=== PATIENT | female | born 1960 | race Caucasian/White ===

== ENCOUNTER → 2018-12-23 | Day surgery (SDC) | payer OTHER ==
--- NOTE | 2018-12-24 14:34 | PATH ---
Surgical Pathology Report Patient Name: ALONZO BLACKWOOD [facility]. Rec. #: [id number] /Age/Gender: 1960 (Age: 58) / F Account: [id number] Location: [facility] Taken: 12/23/2018 Received: 12/23/2018 Reported: 12/24/2018 Physicians: Toni Woodward M.D. Specimen(s) Received A: RIGHT BREAST SPECIMEN SITE 1 - WITH CALCIFICATIONS B: RIGHT BREAST SPECIMEN - SITE 1 - WITHOUT CALCIFICATIONS C: RIGHT BREAST SPECIMEN - SITE 2 - WITH CALCIFICATIONS D: RIGHT BREAST SPECIMEN -SITE 2 - WITHOUT CALCIFICATIONS Clinical History Nonpalpable lesion Mammographic findings: Microcalcification, suspicious 2 sites: Site #1-right retroareolar calcifications Site #2-lower outer quadrant calcifications Final Diagnosis A. RIGHT BREAST, SITE 1 RETROAREOLAR WITH CALCIFICATION, STEREOTACTIC NEEDLE CORE BIOPSY: BENIGN BREAST TISSUE WITH FIBROCYSTIC CHANGES INCLUDING FOCAL USUAL DUCTAL HYPERPLASIA, COLUMNAR CELL CHANGE, STROMAL FIBROSIS, DUCTAL DILATATION, AND ASSOCIATED CALCIFICATION. B. RIGHT BREAST, SITE 1 RETROAREOLAR WITHOUT CALCIFICATION, STEREOTACTIC NEEDLE CORE BIOPSY: BENIGN BREAST TISSUE WITH FIBROCYSTIC CHANGES INCLUDING USUAL DUCTAL HYPERPLASIA, STROMAL FIBROSIS, AND DUCTAL DILATATION. C. RIGHT BREAST, SITE 2 LOWER OUTER QUADRANT WITH CALCIFICATION, STEREOTACTIC NEEDLE CORE BIOPSY: LOBULAR CARCINOMA IN-SITU (LCIS), CLASSICAL TYPE. E-CADHERIN STAIN SHOWS LOSS OF STAINING CONSISTENT WITH LOBULAR PHENOTYPE. REMAINING BREAST TISSUE WITH FIBROCYSTIC CHANGES INCLUDING USUAL DUCTAL HYPERPLASIA, STROMAL FIBROSIS, DUCTAL DILATATION, CYSTIC APOCRINE METAPLASIA, AND ASSOCIATED CALCIFICATION. D. RIGHT BREAST, SITE 2 LOWER OUTER QUADRANT WITHOUT CALCIFICATION, STEREOTACTIC NEEDLE CORE BIOPSY: LOBULAR CARCINOMA IN-SITU (LCIS), CLASSICAL TYPE. E-CADHERIN STAIN SHOWS LOSS OF STAINING CONSISTENT WITH LOBULAR PHENOTYPE. REMAINING BREAST TISSUE WITH FIBROCYSTIC CHANGES INCLUDING USUAL DUCTAL HYPERPLASIA, STROMAL FIBROSIS, DUCTAL DILATATION, AND CYSTIC APOCRINE METAPLASIA. Electronically Signed Denver Dawson M.D. Gross Description A. Received in formalin labeled "right breast with calcifications site 1 retroareolar," are 8 cueto-yellow, cylindrical portions of fibroadipose tissue ranging from 0.5-2.7 cm in length and averaging 0.3 cm in diameter. The specimens are submitted in toto in 2 cassettes. B. Received in formalin labeled "right breast without calcifications site 1 retroareolar," is a 2.2 x 2.0 x 0.2 cm aggregate of multiple cueto-yellow, irregular to cylindrical portions of fibroadipose tissue. The formalin is filtered and the specimen is entirely submitted in one cassette. C. Received in formalin labeled "right breast with calcifications site 2 lower outer," is a 2.5 x 2.1 x 0.3 cm aggregate of multiple cueto-yellow, irregular to cylindrical portions of fibroadipose tissue. The formalin is filtered and the specimen is entirely submitted in one cassette. D. Received in formalin labeled "right breast without calcifications site 2 lower outer," is a 1.6 x 1.3 x 0.3 cm aggregate of multiple cueto-yellow, irregular to cylindrical portions of fibroadipose tissue. The formalin is filtered and the specimen is entirely submitted in one cassette. Time to formalin fixation: 5 minutes Total formalin fixation time: Approximately 8 hours. 12/23/2018 [facility]12/23/2018
== END | disposition home or self-care (01) ==
LOC: FMAMMOTONE 08:30
PROVIDERS: ATTEND Surgery Surgical Oncology
PROC: 0HBT3ZX Excision of Right Breast, Percutaneous Approach, Diagnostic (ICD-10-PCS; principal; 2018-12-23)
DX: D05.01 Lobular carcinoma in situ of right breast (principal); N60.81 Other benign mammary dysplasias of right breast; N60.31 Fibrosclerosis of right breast; N64.89 Other specified disorders of breast; R92.1 Mammographic calcification found on diagnostic imaging of breast
CPT/HCPCS: 19081; 19082; 87899; 88305-TC; 88342-TC; A4648

== ENCOUNTER 2019-01-05 09:57 | Day surgery (SDC) | payer OTHER ==
[2018-12-29 14:35] VITALS: BMI 24.8
--- NOTE | 2019-01-04 09:09 | HP ---
Admitting History and Physical - Primary Care Physician PCP: Toni Woodward - Admission Chief Complaint: Right breast LCIS History of Present Illness: Patient is a 58 yo female noted to have right breast calcifications on screening mammo 11/2018 in the retroareolar and lower outer quad. Patient underwent a stereo bx on 12/23/2018 which was c/w LCIS in the lower outer quad and benign tissue in the retroareolar aspect. Patient is now presenting for Right breast WE with NL. History Source: Patient Limitations to Obtaining History: No Limitations - Past Medical History Cardiovascular: Yes: Hyperlipdemia ...: No - Smoking History Smoking history: Never smoked Have you smoked in the past 12 months: No - Alcohol/Substance Use Hx Alcohol Use: Yes (SOCIALLY) Home Medications - Allergies Allergies/Adverse Reactions: Allergies Allergy/AdvReac Type Severity Reaction Status Date / Time No Known Drug Allergies Allergy Verified 12/29/18 14:18 - Home Medications Home Medications: Ambulatory Orders Ascorbic Acid [Vitamin C] 500 mg PO DAILY 12/29/18 Biotin 10,000 mcg PO DAILY 12/29/18 Cholecalciferol (Vitamin D3) [Vitamin D3] 2,000 unit PO DAILY 12/29/18 Cyanocobalamin Vit B-12 Inj. [Redisol] 1,000 mcg IJ MONTHLY 12/29/18 Multivitamins [Tab-A-Vit -] 1 tab PO DAILY 12/29/18 Rosuvastatin Calcium [Crestor] 5 mg PO ASDIR 12/29/18 Ubidecarenone/Vit E Acet [Co Q-10 100 mg Softgel] 1 each PO DAILY 12/29/18 Family Disease History - Family Disease History Family Disease History: CA: Brother (pancreatic cancer) Review of Systems - Review of Systems Constitutional: reports: No Symptoms Cardiovascular: reports: No Symptoms Respiratory: reports: No Symptoms Physical Examination Constitutional: Yes: Well Nourished Breast(s): Yes: Other (Ptotic full B-cup breasts without skin changes or nipple discharge. No suspicious masses or adenopathy was noted bilaterally.) Problem List - Problems (1) Lobular carcinoma of right breast Code(s): C50.911 - MALIGNANT NEOPLASM OF UNSP SITE OF RIGHT FEMALE BREAST Assessment/Plan Plan: Right breast WE with NL
--- NOTE | 2019-01-04 09:19 | HP ---
History & Physical Update - History Currently as noted:: past surgical hx: and lap CCY
[2019-01-05] MEDS ORDERED: fentaNYL CITRATE 250 MCG/5 ML VIAL ONE (12:33)
[2019-01-05] MEDS ORDERED: ONDANSETRON 4 MG/2 ML VIAL ONE ×2 (12:33→14:14)
[2019-01-05] MEDS ORDERED: DEXAMETHASONE SOD PHOSPHATE 4 MG/1 ML VIAL ONE (12:33)
[2019-01-05] MEDS ORDERED: PROPOFOL 20 ML ONE (12:34)
[2019-01-05] MEDS ORDERED: ceFAZolin SODIUM 1 GM VIAL ONE (12:34)
[2019-01-05] MEDS ORDERED: MIDAZOLAM HCL 2 MG/2 ML SINGLE DOSE VIAL ONE (12:34)
[2019-01-05] MEDS ORDERED: BUPIVACAINE HCL/PF 2.5 MG/ML - 30 ML VIAL IJ ONE (13:50)
[2019-01-05] MEDS ORDERED: DESFLURANE GAS 240 ML BOTTLE IH ONE (14:37)
[2019-01-05] MEDS ORDERED: GUM MASTIC/STORAX/MSAL/ALCOHOL 1 DRP DROPSBTL MC ONE (14:53)
[2019-01-05] MEDS ORDERED: ONDANSETRON 4 MG/2 ML VIAL IVPUSH PRN (15:07)
[2019-01-05] MEDS ORDERED: DEXTROSE 5%-0.45% SALINE 1,000 ML IV SCH (15:15)
[2019-01-05] MEDS ORDERED: oxyCODONE HCL 5 MG TABLET PO PRN (15:57)
[2019-01-05] MEDS ORDERED: LACTATED RINGERS SOLUTION 1,000 ML IV SCH (16:00)
[2019-01-05 16:06] VITALS: TEMP 97.9
[2019-01-05] MEDS ORDERED: oxyCODONE HCL 5 MG TABLET ONE (16:06)
[2019-01-05 17:13] VITALS: BP 120/66; PULSE 74
--- NOTE | 2019-01-05 20:22 | OP ---
DATE OF OPERATION: 01/05/2019 PREOPERATIVE DIAGNOSIS: Right breast lobular cancer in situ. POSTOPERATIVE DIAGNOSIS: Right breast lobular cancer in situ. PROCEDURE: Right breast wide excision with mammographic needle localization. ANESTHESIA: General laryngeal mask airway anesthesia. PRIMARY SURGEON: Gerald Woodward MD MANAGER RELIABILITY: YOJANA Brown COMPLICATIONS: None. Briefly, the patient is a 58-year-old postmenopausal white female of [place] and [place] descent. She has no family history of breast or ovarian cancer. She was noticed to have some increased calcifications in the right breast retroareolar and lower outer quadrant of the right breast. She underwent stereotactic biopsies, which showed the retroareolar biopsy to be benign, but the lower outer quadrant biopsy showed LCIS. There were some other calcifications, which were reviewed by our radiologist preoperatively, and they were felt to be insignificant. The patient was advised of undergoing a wide excision of this right breast lower outer quadrant area of LCIS. She was brought in for the procedure on January 05, 2019, and underwent the mammographic needle localization of the clip. She was then brought to the holding area. In the holding area, site verification was made and informed consent was obtained. She was brought into the operating room and laid down on the OR table in a supine position. Venodynes were placed on the lower extremities and she received general laryngeal mask airway anesthesia. The right breast was sterilely prepped and draped in the usual fashion. A periareolar incision was made around the lateral aspect of the right breast nipple/areolar complex and dissection was undertaken around the needle localization site. There was a fairly good-sized hematoma around the biopsy site and this had to be entered in order to remove the entire specimen. The specimen was removed with the wire intact within the middle of the specimen and oriented with a long lateral, short superior suture. Specimen radiograph did not show the clip in question. There was noted to be some further posterior wall to the biopsy cavity in the wide excision site and the posterior aspect was removed as well as residual hematoma and this was oriented with a suture marking the biopsy cavity side; however, this as well, did not show the clip on specimen radiograph. Another anterior section was taken, again, not showing the clip. At this point, the entire biopsy cavity had been removed with all the hematoma. There was another hematoma in the retroareolar region, which was also evacuated in order to offer the patient some pain relief. Hemostasis was achieved using electrocautery. The wound was copiously irrigated with warm sterile saline. The breast parenchyma was then reapproximated using 2-0 plain suture. The skin was closed using interrupted 3-0 deep dermal Vicryl suture and a running 4-0 subcuticular Biosyn suture. Dermabond, Mastisol, Steri-Strips were applied over the incision. She was awake and alert at the end of the procedure. The laryngeal mask airway tube was removed. When she was awake and alert, I spoke to her about the fact that we did not see the clip on the specimen radiograph. It is likely that the clip did fall out with the hematoma. We did remove the entire gross biopsy site in the lower outer quadrant, however, and will await the pathology. We will get a followup mammography in a month just to confirm clip removal. All sponge and needle counts were correct at the end of the case. ESTIMATED BLOOD LOSS: Minimal. She will follow up in the office in 1 week. GERALD WOODWARD M.D. [id number]
--- NOTE | 2019-01-08 16:56 | PATH ---
Surgical Pathology Report Patient Name: ALONZO BLACKWOOD [facility]. Rec. #: [id number] /Age/Gender: 1960 (Age: 58) / F Account: [id number] Location: [facility] Taken: 01/05/2019 Received: 01/05/2019 Reported: 01/08/2019 Physicians: Toni Woodward M.D. Specimen(s) Received A: RIGHT BREAST WIDE EXCISION B: POSTERIOR MARGIN RIGHT BREAST C: ANTERIOR MARGIN BREAST RIGHT Clinical History Wide excision for LCIS Final Diagnosis A. RIGHT BREAST, WIDE EXCISION: INVASIVE LOBULAR CARCINOMA, CLASSICAL TYPE, MODERATELY DIFFERENTIATED (TUBULE SCORE 3/3, NUCLEAR GRADE: 2/3, MITOTIC SCORE: 1/3, TOTAL SCORE 6/9, OMAR GRADE 2), MEASURING 0.8 CM IN GREATEST DIMENSION, MICROSCOPICALLY. LOBULAR CARCINOMA IN SITU (LCIS) PRESENT, CLASSICAL TYPE. SURGICAL MARGINS ARE UNINVOLVED BY INVASIVE LOBULAR CARCINOMA. INVASIVE CARCINOMA IS AT 1 MM FROM THE CLOSEST (POSTERIOR) MARGIN. ALSO SEE SPECIMENS B AND C FOR FINAL MARGINS. REMAINDER OF THE BREAST TISSUE SHOW INTRADUCTAL PAPILLOMA AND PROLIFERATIVE FIBROCYSTIC CHANGES WITH ASSOCIATED MICROCALCIFICATIONS. NO LYMPHOVASCULAR INVASION IS IDENTIFIED. PRIOR BIOPSY SITE WITH REACTIVE CHANGES. PATHOLOGIC STAGE (pTNM): pT1b, pN0 SEE ALSO INVASIVE CARCINOMA CASE SUMMARY BELOW. Comment: Immunohistochemical stains (block A1) performed and interpreted at [facility] show the following results: the invasive carcinoma is highlighted with AE1/AE3, and shows loss of membranous staining for E-Cadherin. B. POSTERIOR MARGIN RIGHT BREAST, EXCISION: LOBULAR CARCINOMA IN SITU (LCIS), CLASSICAL TYPE. INTRADUCTAL PAPILLOMA INVOLVED WITH LCIS. PRIOR BIOPSY SITE SHOWING REACTIVE CHANGES WITH MARKED HEMORRHAGE. C. ANTERIOR MARGIN RIGHT BREAST, EXCISION: LOBULAR CARCINOMA IN SITU (LCIS), CLASSICAL TYPE. PRIOR BIOPSY SITE SHOWING REACTIVE CHANGES WITH MARKED HEMORRHAGE. Comments Breast Invasive Carcinoma: Surgical Pathology Case Summary (Based on AJCC TNM 8 th edition) Procedure _x_ Excision (less than total mastectomy) Specimen Laterality _x_ Right Tumor Size Greatest dimension of largest invasive focus >1 mm (millimeters): 8 mm Histologic Type _x_ Invasive lobular carcinoma, classical type Histologic Grade (Lavon Histologic Score) Glandular (Acinar)/Tubular Differentiation _x_ Score 3 (<10% of tumor area forming glandular/tubular structures) Nuclear Pleomorphism _x_ Score 2 Mitotic Rate _x_ Score 1 Overall Grade _x_ Grade 2 (scores of 6 or 7) Tumor Focality _x_ Single focus of invasive carcinoma Ductal Carcinoma In Situ (DCIS) _x_ No DCIS in specimen Margins Invasive Carcinoma Margins _x_ Uninvolved by invasive carcinoma Distance from closest margin (millimeters): >1 mm Closest margin: Posterior margin. The distance from invasive carcinoma to posterior margin measures 1 mm in the wide excision (specimen A). Additional final posterior margin (specimen B) is negative for invasive carcinoma. DCIS Margins _x_ No DCIS in specimen Regional Lymph Nodes _x_ No lymph nodes submitted or found Treatment Effect _x_ No known presurgical therapy Lymphovascular Invasion _x_ Not identified Pathologic Stage Classification (pTNM, AJCC 8th Edition) Primary Tumor (Invasive Carcinoma) (pT) _x_ pT1b: Tumor >5 mm but =10 mm in greatest dimension Category (pN) _x_ pNX: Regional lymph nodes cannot be assessed (eg, not removed for pathological study or previously removed) Biomarker Studies Results of ER and WI studies performed on this specimen (block# A1) at [facility] are as follows: ER (clone [id number] mouse monoclonal antibody by [employer]): >95 % nuclear staining with strong intensity (positive). WI (clone16 mouse monoclonal antibody by [employer]): >90% nuclear staining with moderate to strong intensity (positive). Results of Her2 and Ki67 studies will be reported separately in an addendum. Positive and negative controls (internal if applicable) show appropriate results. Formalin fixation time is within current ASCO/CAP recommendations for ER, WI and Her2 testing. Electronically Signed Filiberto Guzman M.D. Addendum Reported: 01/11/2019 Addendum Diagnosis Results of Her2 (IHC) & Ki-67 studies performed on block "A1" at [place], [place] ([id number]) are as follows: Her2 IHC (EP3 from [employer], formerly known as [id number], using [employer] Polymer Refine detection kit): 0 (Negative). Ki-67: ~10% (Low proliferative index). Positive and negative controls (internal if applicable) show appropriate results. Bertha Laureana Teto-Marcos M.D. Gross Description A. Received in formalin, labeled "right breast wide excision," is a 4.4 x 3.1 x 2.0 cm. cueto-yellow, irregular, portion of fibroadipose tissue with a needle localization wire present. There is a short suture marking the superior aspect and a long suture marking the lateral aspect, per the surgeon. There is no skin or nipple present. The specimen is inked as follows: superior and lateral blue; inferior green; medial yellow; anterior red; deep black. The specimen is serially sectioned from superior to inferior. Sectioning reveals a 0.4 x 0.4 x 0.4 cm indurated focus of fibrous tissue, focally abutting the deep margin. The focus is 0.6 cm from the medial and anterior margins. [place] sections are submitted in 7 cassettes as follows: 1-full face section of mass with anterior, deep, medial and lateral margins; 2-additional fibrous tissue surrounding mass with anterior, deep, medial and lateral margins; 7-8-hiwcdvwjss fibrous tissue surrounding mass (each with medial, anterior and deep margins); 6-superior margin; 7-inferior margin. Total formalin fixation time: Approximately 27 hours B. Received in formalin labeled "posterior margin right breast" is a 3.2 x 2.7 x 1.3 cm portion of fibroadipose tissue with a suture marking the biopsy cavity side, per the surgeon. The new margin is inked blue and the specimen is serially sectioned. The specimen is entirely and sequentially submitted in 7 cassettes. C. Received in formalin labeled "anterior margin right breast," are 3 cueto-yellow, unoriented portions of fibroadipose tissue ranging from 1.4 x 0.6 x 0.3 cm to 2.3 x 1.5 x 0.4 cm. The presumed biopsy cavity side of each specimen is inked blue and the presumed new margin is inked red. The specimens are serially sectioned. The specimens are entirely submitted in 6 cassettes as follows: 1-smallest portion of tissue; 2-3-medium portion of tissue; 4-6-largest portion of tissue. 01/06/2019 saudi01/06/2019
== END 2019-01-05 17:00 | disposition home or self-care (01) ==
LOC: FASU 09:57
PROVIDERS: ATTEND Surgery Surgical Oncology
PROC: 0HBT0ZZ Excision of Right Breast, Open Approach (ICD-10-PCS; principal; 2019-01-05 13:57)
DX: D05.01 Lobular carcinoma in situ of right breast (principal)
CPT/HCPCS: 19281; 88307-TC; 88341-TC; 88342-TC; 94760

== ENCOUNTER 2019-01-14 09:19 | Day surgery (SDC) | payer OTHER ==
--- NOTE | 2019-01-13 09:02 | HP ---
Admitting History and Physical - Primary Care Physician PCP: Toni Woodward - Admission Chief Complaint: Right breast cancer History of Present Illness: 58 year old postmenapausal female who S/P right breast wide excision for LCIS 01/08/2019. Final pathology showed invasive lobular carcinoma clear margins with classical LCIS .8 cm . Patient is here for right sentenel node biopsy. History Source: Patient Limitations to Obtaining History: No Limitations - Past Medical History Cardiovascular: Yes: Hyperlipdemia - Past Surgical History Past Surgical History: Yes: Cholecystectomy (LAP 2012), (1988) Additional Past Surgical History: gastric sleeve 04/2018 and lost 90 pounds - Smoking History Smoking history: Never smoked Have you smoked in the past 12 months: No - Alcohol/Substance Use Hx Alcohol Use: Yes (SOCIALLY) <Kianna Faulkner - Last Filed: 01/15/19 09:40> Home Medications <Kianna Faulkner - Last Filed: 01/15/19 09:40> <Toni Woodward - Last Filed: 02/02/19 16:50> - Allergies Allergies/Adverse Reactions: Allergies Allergy/AdvReac Type Severity Reaction Status Date / Time No Known Drug Allergies Allergy Verified 12/29/18 14:18 NSAIDS (Non-Steroidal AdvReac PT HAD A Verified 01/13/19 14:21 Anti-Inflamma GASTRIC SLEEVE AND CANNOT TAKE NSAIDS - Home Medications Home Medications: Ambulatory Orders Ascorbic Acid [Vitamin C] 500 mg PO DAILY 12/29/18 Biotin 10,000 mcg PO DAILY 12/29/18 Cholecalciferol (Vitamin D3) [Vitamin D3] 2,000 unit PO DAILY 12/29/18 Cyanocobalamin Vit B-12 Inj. [Vitamin B12 Injection -] 1,000 mcg IJ MONTHLY 11/17 Multivitamins [Multivit ([facility] Formul[facility])] 1 tab PO DAILY 12/29/18 Rosuvastatin Calcium [Crestor] 5 mg PO ASDIR 12/29/18 Oxycodone HCl/Acetaminophen [Percocet 5-325 mg Tablet -] 1 - 2 tab PO Q6H #20 tablet MDD 5 01/14/19 Family Disease History - Family Disease History Family Disease History: CA: Brother (pancreatic ) <Kianna Faulkner - Last Filed: 01/15/19 09:40> Physical Examination Constitutional: Yes: Well Nourished, No Distress Breast(s): Yes: Other (Right breast healing well incision intact with steristrips resoving hematoma) <Kianna Faulkner - Last Filed: 01/15/19 09:40> Vital Signs: Vital Signs Temperature 98.2 F 01/14/19 13:31 Pulse Rate 74 01/14/19 13:31 Respiratory Rate 18 01/14/19 13:31 Blood Pressure 112/64 01/14/19 13:31 O2 Sat by Pulse Oximetry (%) 96 01/14/19 13:14 <Toni Woodward - Last Filed: 02/02/19 16:50> Problem List - Problems (1) Lobular carcinoma of right breast Code(s): C50.911 - MALIGNANT NEOPLASM OF UNSP SITE OF RIGHT FEMALE BREAST <Kianna Faulkner - Last Filed: 01/15/19 09:40> Assessment/Plan Right sentenel node biopsy,lymphoscintogram <Kianna Faulkner - Last Filed: 01/15/19 09:40>
[2019-01-13 14:20] VITALS: BMI 23.8
[2019-01-14] MEDS ORDERED: ISOSULFAN BLUE 10 MG/ML VIAL SQ ONE (09:58)
[2019-01-14] MEDS ORDERED: BUPIVACAINE HCL/PF 2.5 MG/ML - 30 ML VIAL IJ ONE (09:58)
[2019-01-14] MEDS ORDERED: LIDOCAINE HCL 1% PRESERVATIVE FREE - 30ML VIAL ONE (09:59)
[2019-01-14] MEDS ORDERED: MIDAZOLAM HCL 2 MG/2 ML SINGLE DOSE VIAL ONE (10:42)
[2019-01-14] MEDS ORDERED: PROPOFOL 20 ML ONE (11:03)
[2019-01-14] MEDS ORDERED: ONDANSETRON 4 MG/2 ML VIAL ONE ×2 (11:04→11:14)
[2019-01-14] MEDS ORDERED: DEXAMETHASONE SOD PHOSPHATE 4 MG/1 ML VIAL ONE ×2 (11:04→11:14)
[2019-01-14] MEDS ORDERED: ceFAZolin SODIUM 1 GM VIAL ONE (11:08)
[2019-01-14] MEDS ORDERED: ACETAMINOPHEN INJECTION 100 ML IVPB ONE (11:15)
[2019-01-14] MEDS ORDERED: PHENYLEPHRINE HCL 10 MG/1 ML SINGLE DOSE VIAL ONE (11:23)
[2019-01-14] MEDS ORDERED: GUM MASTIC/STORAX/MSAL/ALCOHOL 1 DRP DROPSBTL MC ONE (11:55)
[2019-01-14] MEDS ORDERED: ONDANSETRON 4 MG/2 ML VIAL IVPUSH PRN (12:09)
[2019-01-14] MEDS ORDERED: oxyCODONE HCL 5 MG TABLET PO PRN (12:12)
[2019-01-14] MEDS ORDERED: LACTATED RINGERS SOLUTION 1,000 ML IV SCH (12:15)
[2019-01-14] MEDS ORDERED: DEXTROSE 5%-0.45% SALINE 1,000 ML IV SCH (12:15)
[2019-01-14 12:56] VITALS: TEMP 98.2
[2019-01-14] MEDS ORDERED: oxyCODONE HCL 5 MG TABLET ONE (12:59)
[2019-01-14 13:29] VITALS: BP 112/64; PULSE 74
--- NOTE | 2019-01-18 09:52 | OP ---
DATE OF OPERATION: 01/14/2019 PREOPERATIVE DIAGNOSIS: Right breast cancer, lower outer quadrant. ANESTHESIA: General laryngeal mask airway anesthesia. PRIMARY SURGEON: Toni Woodward MD STOCK PATCH SAWYER: YOJANA Zaldivar PROCEDURE: Right axillary sentinel lymph node biopsy. COMPLICATIONS: None. Briefly, the patient is a 58-year-old, G4, P3, postmenopausal white female of [place] descent. She has no family history of breast or ovarian cancer, but her brother from pancreatic cancer at age 66. The patient was found to have some calcifications in the right breast subareolar and lower outer quadrant on screening mammography in November 2018. Stereotactic biopsies showed the retroareolar calcifications to be benign, but she had LCIS in the lower outer quadrant area of calcifications. She was advised to undergo a partial mastectomy which was performed on January 05, 2019, and had removal of the clip and entire region of the lower outer aspect of the right breast where the LCIS was found. Final pathology did show an 8-mm, classical-type, infiltrating lobular cancer which was ER/ID strongly positive, HER2/bhaskar negative with a Ki-67 of 10%. She underwent an MRI showing the area to be localized. She was advised to undergo genetic testing which was sent and advised to undergo a right axillary sentinel lymph node biopsy. The patient is brought in now for the sentinel lymph node procedure. She first underwent the lymphoscintigraphy at [facility] through a periareolar injection of technetium 99. She was then brought to the holding area at [place]. In the holding area, site verification was made, and informed consent was obtained. She was brought into the operating room and laid on the OR table in a supine position. Venodynes were placed on the lower extremities prior to induction. She received a gram of Ancef prior to incision. General laryngeal mask airway anesthesia was given, and the right breast and axilla were sterilely prepped and draped in the usual fashion. Next, 3 mL of Lymphazurin blue were injected intradermally around the periareolar region and around the previous excision site in the right breast. Massage was instituted. Timeout was performed. Incision was made just below the hair-bearing area of the right axilla, and on dissection, there was minimal radioactive count. However, a blue lymphatic was seen coursing to a hot blue node in the level 1 region of the right axilla, which had a 10-second gamma count of 417. This was grossly benign and was sent to Pathology in formalin for permanent section. Hemostasis was achieved. No other blue or hot nodes were found, and background count was 9 after removal of this one node. The axillary wound was then closed using 2-0 plain suture to close the subcutaneous tissue, and the skin was closed using interrupted 3-0 deep dermal Vicryl suture and a running 4-0 subcuticular Biosyn suture. Mastisol was placed over the wound with Steri-Strips. The patient tolerated the procedure well, without difficulty. Estimated blood loss was minimal, and all sponge and needle counts were correct at the end of the case. The patient will be recovered in the postanesthesia care unit and will be discharged home from ambulatory surgery same day once discharge criteria are met. She is to follow up in the office in 1 week for a formal wound pathology check. Dani [id number]
--- NOTE | 2019-01-18 13:33 | PATH ---
Surgical Pathology Report Patient Name: ALONZO BLACKWOOD [facility]. Rec. #: [id number] /Age/Gender: 1960 (Age: 58) / F Account: [id number] Location: [facility] Taken: 01/14/2019 Received: 01/14/2019 Reported: 01/18/2019 Physicians: Toni Woodward M.D. Specimen(s) Received RIGHT AXILLARY SENTINEL NODE #1 Clinical History [place] lymph node biopsy with history of recurrent right lobular cancer Final Diagnosis LYMPH NODE, RIGHT AXILLARY SENTINEL #1, EXCISION: METASTATIC CARCINOMA, INVOLVING ONE OF ONE LYMPH NODE (1/). THE FOCUS OF METASTATIC CARCINOMA MEASURES 0.4 MM IN GREATEST DIMENSION (MICROMETASTASIS) AND IS IDENTIFIED ON H&E AND CYTOKERATIN (AE 1/3) IMMUNOSTAIN. NO EXTRANODAL EXTENSION IS IDENTIFIED. Electronically Signed Annette Mora M.D. Gross Description Received in formalin labeled "right axillary sentinel node #1," is a 0.8 x 0.6 x 0.5 cm lymph node with attached fat. The specimen is bisected and entirely submitted in one cassette. Time to formalin fixation: < 1 minute Total formalin fixation time: Approximately 6 hours. /01/14/2019 saudi01/14/2019
== END 2019-01-14 13:32 | disposition home or self-care (01) ==
LOC: FASU 09:19
PROVIDERS: ATTEND Surgery Surgical Oncology
PROC: 07B50ZX Excision of Right Axillary Lymphatic, Open Approach, Diagnostic (ICD-10-PCS; principal; 2019-01-14 11:21)
DX: C50.511 Malignant neoplasm of lower-outer quadrant of right female breast (principal); Z17.0 Estrogen receptor positive status [ER+]
CPT/HCPCS: 78195-TC; 88307-TC; 88342-TC; A9541; J0131

== ENCOUNTER → 2019-01-14 | Day surgery (SDC) | payer OTHER | LOC: JRADNM 09:11 ==

== ENCOUNTER 2019-02-25 06:06 | Inpatient (IN) | payer OTHER ==
--- NOTE | 2019-02-11 14:22 | HP ---
Admitting History and Physical - Primary Care Physician PCP: Toni Woodward - Admission Chief Complaint: Right breast cancer History of Present Illness: 58 year old postmenapausal female who underwent a screening mammogram 2018 showing increasing calcifications right breast lower inner quadrant and periareolar region.Stereotactic core biopsy was performed of the right breast Right retroareolar region showed UDH and lowere outer quadrant LCIS classical typeShe retroareolar region and right lower outer quadrant. She underwent a partial mastectomy 01/05/2019 .She had a hematoma at time of excision and clip was not located but entire bx cavity was remove and post op mammogram showed the clip was removed. Final pathology showed a 8 mm focus of classical invasive lobular carcinoma.ER+/TN+ HER2-. Margins were negative but there was some LCIS on the post and anterior margin. MYrisk panel was negative. Breast MRI showed post changes right breast 12/2018. . She underwent right sentenel node biopsy which showed a micromet .4 mm focus. .She decided on bilateral total mastectomies. History Source: Patient Limitations to Obtaining History: No Limitations - Past Medical History Cardiovascular: Yes: Hyperlipdemia - Past Surgical History Past Surgical History: Yes: Cholecystectomy (LAP 2012), (1988) Additional Past Surgical History: Right breast stereotactic core bx 11/2018 showing LCIS Right breast excision for LCIS final pathology showed invasive lobular carcinoma. 8 cm ER+/TN+/HER2- left axillary sentenl node biopsy 01/14/2019 metastatic carcinoma involving one node .4 mm micromets gastric sleeve 2018 lost 90 pounds - Smoking History Smoking history: Never smoked Have you smoked in the past 12 months: No - Alcohol/Substance Use Hx Alcohol Use: Yes (SOCIALLY) Home Medications - Allergies Allergies/Adverse Reactions: Allergies Allergy/AdvReac Type Severity Reaction Status Date / Time No Known Drug Allergies Allergy Verified 12/29/18 14:18 NSAIDS (Non-Steroidal AdvReac PT HAD A Verified 01/13/19 14:21 Anti-Inflamma GASTRIC SLEEVE AND CANNOT TAKE NSAIDS - Home Medications Home Medications: Ambulatory Orders Ascorbic Acid [Vitamin C] 500 mg PO DAILY 12/29/18 Biotin 10,000 mcg PO DAILY 12/29/18 Cholecalciferol (Vitamin D3) [Vitamin D3] 2,000 unit PO DAILY 12/29/18 Cyanocobalamin Vit B-12 Inj. [Vitamin B12 Injection -] 1,000 mcg IJ MONTHLY 11/17 Multivitamins [Multivit ([facility] Formulary)] 1 tab PO DAILY 12/29/18 Rosuvastatin Calcium [Crestor] 5 mg PO ASDIR 12/29/18 Oxycodone HCl/Acetaminophen [Percocet 5-325 mg Tablet -] 1 - 2 tab PO Q6H #20 tablet MDD 5 01/14/19 Family Disease History - Family Disease History Family Disease History: CA: Brother (pancreatic [id number] ) Other Family History: mat uncle gastric ca 60's Physical Examination Constitutional: Yes: Well Nourished Breast(s): Yes: Other (ptotic B sized breasts healed incison periareolar region right breast and axillary incision, no infection/ hematoma radha palpable masses or adenopathy in either breast Post surgical changes right breast) Problem List - Problems (1) Lobular carcinoma of right breast Code(s): C50.911 - MALIGNANT NEOPLASM OF UNSP SITE OF RIGHT FEMALE BREAST Assessment/Plan Bilateral total mastectomies with reconstruction
[2019-02-18 10:07] VITALS: BMI 23.2
[2019-02-25] MEDS ORDERED: BUPIVACAINE HCL 0.25% 125 MG/50 ML VIAL ONE (07:04)
[2019-02-25] MEDS ORDERED: GENTAMICIN SO4 80 MG/2 ML VIAL ONE (07:04)
[2019-02-25] MEDS ORDERED: ceFAZolin SODIUM 1 GM VIAL ONE ×2 (07:04→08:00)
[2019-02-25] MEDS ORDERED: PROPOFOL 20 ML ONE (07:15)
[2019-02-25] MEDS ORDERED: fentaNYL CITRATE 250 MCG/5 ML VIAL ONE (07:15)
[2019-02-25] MEDS ORDERED: DEXAMETHASONE SOD PHOSPHATE 4 MG/1 ML VIAL ONE (07:16)
[2019-02-25] MEDS ORDERED: ONDANSETRON 4 MG/2 ML VIAL ONE (07:16)
[2019-02-25] MEDS ORDERED: SUCCINYLCHOLINE CHLORIDE 200 MG/10 ML VIAL ONE (07:16)
[2019-02-25] MEDS ORDERED: LIDOCAINE HCL/PF 2% SDV 5ML VIAL ONE (07:16)
[2019-02-25] MEDS ORDERED: MIDAZOLAM HCL 2 MG/2 ML SINGLE DOSE VIAL ONE ×2 (07:38)
[2019-02-25] MEDS ORDERED: DESFLURANE GAS 240 ML BOTTLE IH ONE (07:41)
[2019-02-25] MEDS ORDERED: ROCURONIUM BROMIDE 50 MG/5 ML VIAL ONE ×2 (07:47→09:37)
[2019-02-25] MEDS ORDERED: PHENYLEPHRINE HCL 10 MG/1 ML SINGLE DOSE VIAL ONE (08:10)
[2019-02-25] MEDS ORDERED: SODIUM CHLORIDE 0.9% P/F 10 ML VIAL IJ ONE (08:18)
[2019-02-25] MEDS ORDERED: BUPIVACAINE HCL/PF 2.5 MG/ML - 30 ML VIAL IJ ONE (08:18)
[2019-02-25] MEDS ORDERED: BUPIVACAINE LIPOSOME/PF (EXPAREL) 266 MG/20 ML VIAL ONE (08:20)
[2019-02-25] MEDS ORDERED: ONDANSETRON 4 MG/2 ML VIAL IVPUSH PRN ×2 (09:41→10:08)
[2019-02-25] MEDS ORDERED: SCOPOLAMINE HYDROBROMIDE 1 PATCH PATCH.TD72 ONE (09:44)
[2019-02-25] MEDS ORDERED: oxyCODONE HCL 5 MG TABLET PO PRN ×3 (10:07→15:39)
[2019-02-25] MEDS ORDERED: ACETAMINOPHEN 325 MG TABLET (FP) PO PRN ×2 (10:08→10:16)
[2019-02-25] MEDS ORDERED: NEOSTIGMINE METHYLSULFATE 0.5 MG/ML - 10 ML MDV ONE (11:03)
[2019-02-25] MEDS ORDERED: GLYCOPYRROLATE 0.2 MG/1 ML VIAL ONE (11:03)
[2019-02-25] MEDS ORDERED: FAMOTIDINE 20 MG/50 ML IVPB 20 MG/50 ML MG IVPB ONE (11:36)
[2019-02-25] MEDS ORDERED: FAMOTIDINE 20 MG PREMIXED IVPB IVPB ONE (11:37)
[2019-02-25] MEDS ORDERED: ACETAMINOPHEN INJECTION 100 ML IVPB ONE (11:43)
[2019-02-25] MEDS: ACETAMINOPHEN 1000 MG/100 ML VIAL (NON FORMULARY) IVPB SCH ×2 (11:45→17:20)
--- NOTE | 2019-02-25 12:00 | OP ---
DATE OF OPERATION: 02/25/2019 PREOPERATIVE DIAGNOSIS: Right breast lower outer quadrant cancer. POSTOPERATIVE DIAGNOSIS: Right breast lower outer quadrant cancer. PROCEDURE: Bilateral nipple-sparing mastectomies with bilateral direct implant reconstruction with AlloDerm. ANESTHESIA: General endotracheal anesthesia. PRIMARY SURGEON: Gerald Woodward M.D. MATE FOURTH: YOJANA Zaldivar PLASTIC SURGEON: Gerald Maldonado M.D. MATE FOURTH: Constanza COMPLICATIONS: None. Briefly, the patient is a 58-year-old G4, P3 postmenopausal white female [place] descent. She has no family history of breast or ovarian cancer, but her brother from pancreatic cancer at age 66. The patient was found to have some calcifications in the right breast on screening mammography and stereotactic biopsy in the right breast low outer quadrant showed LCIS. She underwent a wide excision of this area on January 05, 2019, showing an 8 mm focus of invasive lobular cancer, which was classical type, but had free margins and was ER/FL positive, HER2/bhaskar negative. She was advised on undergoing a sentinel lymph node biopsy, which was performed on January 14, 2019, and 1 node was shown to have micro metastasis measuring about 0.4 mm. The patient has decided to undergo bilateral prophylactic mastectomies and was given the option of a nipple-sparing technique. She was seen by the Plastic Surgeon, Dr. Maldonado preoperatively and chose to have direct implant reconstruction. It was decided that she did not require any further node dissection, given the small amount of disease in the node and the small cancer. The patient was brought in for the procedure on February 25, 2019. In the holding area site verification was made and informed consent was obtained. She was marked preoperatively by the Plastic Surgeon. PROCEDURE: She was brought into the operating room and laid on the OR table in the supine position. Venodynes were placed on the lower extremities prior to induction. She received a gram of Ancef prior to incision. Both breasts were sterilely prepped and draped in the usual fashion. She underwent general endotracheal anesthesia. Bilateral inframammary incisions were marked out in the inframammary folds of both breasts about 9 cm in length. The right mastectomy was first performed. The inframammary incision was made and the skin edges were everted and the breast was retracted inferiorly using [place] clamps. The skin flap was raised using the PEAK radiofrequency device superiorly to the level of the clavicle, medially to the level of the sternum, laterally to the level of the latissimus, and inferiorly to the level of the inframammary fold. The breast was taken out of the pectoralis major muscle using electrocautery from an inferior medial to superior lateral and completely removed intact. It was oriented with a long, lateral, short, superior suture and weighed to allow for appropriate cosmetic result and sent to Pathology in formalin as specimen. A retroareolar biopsy was taken underneath the right nipple areolar complex that came back with some questionable atypia, but no cancer, so the right nipple was spared. Hemostasis was achieved and the wound was copiously irrigated with warm sterile saline. At this point, the left nipple-sparing mastectomy was performed again through an inframammary approach about 9 cm in length. The skin edge was everted and the breast tissue was retracted inferiorly using Giovanni clamps. The skin flap was raised using the PEAK radiofrequency device superiorly to the level of the clavicle, medially to the level of the sternum, laterally to the level of the latissimus, and inferiorly to the level of the inframammary fold. The breast was taken out of the pectoralis major muscle from inferior medial to superior lateral and completely removed intact. It was oriented with the long, lateral, short, superior suture. Weighed to allow for appropriate cosmetic result and placed in formalin and sent to Pathology as specimen. A retroareolar biopsy was taken underneath the right nipple areolar complex sent for frozen section came back negative, so the left nipple was spared, as well as the right. Hemostasis was achieved and the wound was copiously irrigated with warm sterile saline. At this point, Dr. Maldonado became the primary surgeon and performed bilateral subpectoral direct implant reconstruction using AlloDerm sutured in the inferolateral aspect of both pectoralis major muscles to allow for the single-step reconstruction. Two Fabiano drains will be placed around each implant, brought through separate stab incisions on the lateral skin flaps and secured in place using 3-0 nylon suture. The wounds will be closed by Plastic Surgery using interrupted 3-0 deep dermal PDS suture and a running 4-0 subcuticular PDS suture. Mastisol and Steri-Strips will be placed over the skin. He did instill Exparel into the chest wall after both mastectomies for postoperative pain control. The patient will be extubated and placed in a surgical bra and recovered in the post anesthesia care unit. She will be admitted postoperatively for pain management and wound management. All sponge and needle counts were correct at this point in the case and estimated blood loss was about 100 mL. She was seen and amply stable throughout. GEARLD WOODWARD M.D. [id number]
--- NOTE | 2019-02-25 12:04 | OP ---
Operative Note - Note: Operative Date: 02/25/19 Pre-Operative Diagnosis: breast cancer Operation: bilateral nipple sparing mastectomy with reconstruction. Bilateral placement of alloderm and implants. Surgeon: Kenn Maldonado Sales Representative: Constanza Yang Anesthesiologist/SLEEPING CAR PORTER: Alexis Crooks Anesthesia: General Specimens Removed: bilateral breast tissue Estimated Blood Loss (mls): 50 Fluid Volume Replaced (mls): 1,100 Operative Report Dictated: Yes
--- NOTE | 2019-02-25 13:47 | OP ---
DATE OF OPERATION: 02/25/2019 SURGEON: Kevin Maldonado MD SLITTER CREASER SLOTTER HELPER SURGEON: Constanza Yang PA-C PREOPERATIVE DIAGNOSES: 1. 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 2. Personal history of genetic carcinoma. POSTOPERATIVE DIAGNOSES: 1. 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 2. Personal history of genetic carcinoma. PROCEDURE: 1. Right immediate breast reconstruction utilizing immediate insertion of silicone breast implant and AlloDerm reconstruction. 2. Left immediate breast reconstruction utilizing immediate insertion of silicone breast implant and AlloDerm reconstruction. 3. Intravenous injection of indocyanine green dye and intraoperative diagnostic evaluation of non-coronary intraoperative fluorescein vascular angiography x 2. This is a combined dictation with Dr. Gerald Woodward for bilateral implant and AlloDerm reconstruction. The patient underwent bilateral mastectomy dictated under separate cover by Dr. Woodward and the patient underwent reconstruction using an implant of Sientra smooth round high-profile style 107, 470 mL bilaterally and AlloDerm Contour medium perforated thick AlloDerm bilaterally. ANESTHESIA: General. OPERATIVE PROCEDURE IN DETAIL: The patient was taken to the operating room. After induction of general anesthesia in the supine position, both arms were extended and padded. Venodyne boots were placed. The entire chest wall was painted with ChloraPrep solution over its entire extent, and sterile drapes were placed in the usual fashion. The markings, which had been made in the standing position preoperatively, were reoutlined with the patient's knowledge. Timeout procedure was performed. Attention was turned by Dr. Woodward to the mastectomies. Bilateral inframammary incisions were made and Dr. Woodward performed mastectomies. This will be dictated under separate cover. Upon completion of the mastectomies, the wounds were copiously irrigated and attention was turned to the right breast. A subpectoral dissection was begun on the right breast, superiorly from the second rib, medially to the sternal fibers, and down to the inframammary fold, elevating the pectoralis major muscle from its insertion. At this point, an 8.0 x 16.0 sheet of AlloDerm was brought into the field and sutured superiorly along the pectoralis major muscle after rehydration. This was carried along the lateral mammary fold and down the side of the breast reconstruction. At this point, a Sientra smooth round high-profile style 107, 470-mL implant was chosen. The left breast tissue removed was g, and the right breast approximately g. This implant was placed and then sutured with 3-0 Vicryl suture continued along the inframammary fold, completely covering the implant itself. The exact same procedure was carried out symmetrically on the opposite breast, also placing a Sientra smooth round high-profile style 107, 470-mL implant in the same subpectoral pocket. Good symmetry was seen in the sitting position. After the implants were in place, the patient was injected with 10 mL of Isocyanide green dye and the Spy imaging system was brought into the field. The skin flowed to the right and left breasts and the nipple-areolar complex, and the entire skin flaps were evaluated and seen to be viable with good blood flow. Two Fabiano drains were brought out through separate stab wounds laterally. The Smart Infuser pump catheter was inserted medially and into the subpectoral position. Both wounds were closed symmetrically using 3-0 PDS suture on the deep tissue, 3-0 in a deep dermal fashion, and 4-0 in a subcuticular fashion. Both wounds were dressed sterilely with Mastisol and Steri-Strips with a surgical bra and a compression strap. The patient tolerated the procedure well. She was awakened, extubated and transferred to the recovery room in satisfactory condition. The research study assistant was present during the entire portion of the operation and closure. GERALD MALDONADO M.D. [id number]
[2019-02-25] MEDS: CEFAZOLIN 1 GM/D5W 1 GM/50 ML BAG IVPB SCH ×2 (15:00→20:48)
[2019-02-25] MEDS ORDERED: HYDROmorphone HCl 2 MG/ML VIAL IVPB PRN (15:41)
[2019-02-25] MEDS: oxyCODONE HCL 5 MG TABLET PO PRN ×2 (17:20→20:47)
[2019-02-25] MEDS: DEXTROSE 5%-0.45% SALINE 1,000 ML IV SCH (18:35)
[2019-02-25] MEDS: diazePAM 5 MG TABLET PO SCH (22:14)
[2019-02-25] MEDS: ZOLPIDEM TARTRATE 5 MG TABLET PO PRN (22:14)
[2019-02-25] MEDS: oxyCODONE HCL 10 MG SUSTAINED ACTING TABLET PO SCH (22:14)
[2019-02-26] MEDS: ACETAMINOPHEN 1000 MG/100 ML VIAL (NON FORMULARY) IVPB SCH ×4 (00:41→18:23)
[2019-02-26] MEDS: CEFAZOLIN 1 GM/D5W 1 GM/50 ML BAG IVPB SCH ×4 (03:33→21:38)
[2019-02-26] MEDS: oxyCODONE HCL 5 MG TABLET PO PRN ×3 (03:33→18:18)
[2019-02-26 07:45] LABS: HEMATOCRIT 33.5 % (32.4-45.2); HEMOGLOBIN 11.5 GM/dl (10.7-15.3); MCH 34.1 pg (25.7-33.7); MCHC 34.4 g/dl (32.0-36.0); MEAN CELL VOLUME 99.2 fl (80-96); MEAN PLT VOLUME 9.1 fl (7.5-11.1); PLATELET COUNT 143 K/MM3 (134-434); RBC 3.38 M/mm3 (3.60-5.2); RDW 12.3 % (11.6-15.6); WHITE BLOOD COUNT 6.9 K/mm3 (4.0-10.8)
--- NOTE | 2019-02-26 08:50 | PN ---
Progress Note, Physician Chief Complaint: POD s/p bilateral mastectomy with reconstruction, under GA - Current Medication List Current Medications: Active Medications Acetaminophen (Ofirmev Injection -) 1,000 mg IVPB Q6H [facility] Last Admin: 02/26/19 05:57 Dose: 1,000 mg Acetaminophen (Tylenol -) 650 mg PO Q4H PRN PRN Reason: FEVER Diazepam (Valium -) 5 mg PO BID [facility] Last Admin: 02/25/19 22:14 Dose: 5 mg Hydromorphone HCl (Dilaudid Vial -) 0.5 mg IVPB Q3H PRN PRN Reason: PAIN LEVEL 7 - 10 Cefazolin Sodium (Ancef 1 Gm Premixed Ivpb -) 1 gm in 50 mls @ 100 mls/hr IVPB Q6H-IV [facility] Stop: 03/04/19 14:59 Last Admin: 02/26/19 03:33 Dose: 100 mls/hr Dextrose/Sodium Chloride (D5-1/2ns -) 1,000 mls @ 100 mls/hr IV ASDIR [facility] Last Admin: 02/25/19 18:35 Dose: 100 mls/hr Ondansetron HCl (Zofran Injection) 4 mg IVPUSH Q6H PRN PRN Reason: NAUSEA AND/OR VOMITING Oxycodone HCl (Oxycontin -) 10 mg PO BID [facility] Stop: 02/28/19 10:10 Last Admin: 02/25/19 22:14 Dose: 10 mg Oxycodone HCl (Roxicodone -) 5 mg PO Q3H PRN PRN Reason: PAIN LEVEL 1 - 3 Oxycodone HCl (Roxicodone -) 10 mg PO Q3H PRN PRN Reason: PAIN LEVEL 4 - 6 Last Admin: 02/26/19 03:33 Dose: 10 mg Rosuvastatin Calcium (Crestor -) 5 mg PO Q2D [facility] Zolpidem Tartrate (Ambien -) 5 mg PO HS PRN PRN Reason: Insomnia Last Admin: 02/25/19 22:14 Dose: 5 mg - Objective Vital Signs: Vital Signs Temperature 98.8 F 02/26/19 06:56 Pulse Rate 60 02/26/19 06:56 Respiratory Rate 18 02/26/19 06:56 Blood Pressure 92/54 L 02/26/19 06:56 O2 Sat by Pulse Oximetry (%) 99 02/26/19 08:24 Labs: CBC, BMP 02/26/19 07:14 Assessment/Plan Has minimal pain, no N/V today. Doing well, with no complaints. No anesthetic issues/complications noted
[2019-02-26] MEDS: oxyCODONE HCL 10 MG SUSTAINED ACTING TABLET PO SCH ×2 (09:02→21:37)
[2019-02-26] MEDS: diazePAM 5 MG TABLET PO SCH ×2 (09:02→21:38)
--- NOTE | 2019-02-26 09:10 | PN ---
Progress Note (short form) - Note Progress Note: POD#1 Pt OOB and ambulating overnight and this am. Tolerated a diet and voiding without difficulty. No CP or SOB, no dizziness. Vital Signs Period Temp Pulse Resp BP Sys/Conrad Pulse Ox Last 24 Hr 97.5 F-98.8 F 54-94 12-18 90-134/51-85 94-100 KIRSTEN(drains with light pink fluid) Left upper 70ml left lower 50ml right upper 70ml right lower 50ml Right breast inc c/d/i. Nipple cap refill 5 seconds/slight sluggish. Flaps viable with some ecchymosis lateral/upper aspect. Left breast inc c/d/i. Good cap refill. Mild ecchymosis/flap viable. All drains functioning well. CBC, BMP 02/26/19 07:14 A/p: 58 yo female s/p b/l nipple sparing mastectomies with reconstruction implants and alloderm Case D/w Dr. Maldonado Will continue bassam hugger to bilateral breasts and monitor nipples for ischemia Oral hydration, diet as tolerated and oral pain medications. OOB and ambulate/SCDs while non-ambulatory
--- NOTE | 2019-02-26 09:16 | PN ---
Progress Note, Physician Chief Complaint: Right breast cancer S/P Bilateral total mastectomies ,Prior sentenel node bx was negative,implant and alloderm reconstruction History of Present Illness: patient is OOB ,eating, no nausea or vomiting, pain controlled with current regimen - Current Medication List Current Medications: Active Medications Acetaminophen (Ofirmev Injection -) 1,000 mg IVPB Q6H [facility] Last Admin: 02/26/19 05:57 Dose: 1,000 mg Acetaminophen (Tylenol -) 650 mg PO Q4H PRN PRN Reason: FEVER Diazepam (Valium -) 5 mg PO BID [facility] Last Admin: 02/26/19 09:02 Dose: 5 mg Hydromorphone HCl (Dilaudid Vial -) 0.5 mg IVPB Q3H PRN PRN Reason: PAIN LEVEL 7 - 10 Cefazolin Sodium (Ancef 1 Gm Premixed Ivpb -) 1 gm in 50 mls @ 100 mls/hr IVPB Q6H-IV [facility] Stop: 03/04/19 14:59 Last Admin: 02/26/19 09:02 Dose: 100 mls/hr Dextrose/Sodium Chloride (D5-1/2ns -) 1,000 mls @ 100 mls/hr IV ASDIR [facility] Last Admin: 02/25/19 18:35 Dose: 100 mls/hr Ondansetron HCl (Zofran Injection) 4 mg IVPUSH Q6H PRN PRN Reason: NAUSEA AND/OR VOMITING Oxycodone HCl (Oxycontin -) 10 mg PO BID [facility] Stop: 02/28/19 10:10 Last Admin: 02/26/19 09:02 Dose: 10 mg Oxycodone HCl (Roxicodone -) 5 mg PO Q3H PRN PRN Reason: PAIN LEVEL 1 - 3 Oxycodone HCl (Roxicodone -) 10 mg PO Q3H PRN PRN Reason: PAIN LEVEL 4 - 6 Last Admin: 02/26/19 03:33 Dose: 10 mg Rosuvastatin Calcium (Crestor -) 5 mg PO Q2D [facility] Zolpidem Tartrate (Ambien -) 5 mg PO HS PRN PRN Reason: Insomnia Last Admin: 02/25/19 22:14 Dose: 5 mg - Objective Vital Signs: Vital Signs Temperature 98.8 F 02/26/19 06:56 Pulse Rate 60 02/26/19 06:56 Respiratory Rate 18 02/26/19 06:56 Blood Pressure 92/54 L 02/26/19 06:56 O2 Sat by Pulse Oximetry (%) 99 02/26/19 08:24 Constitutional: Yes: No Distress Breast(s): Yes: Other (flaps bilateral viable right some echymosis and thin area above nipple, small scab on right nipple. incision intact, KIRSTEN drains functionin well) Labs: CBC, BMP 02/26/19 07:14 Problem List - Problems (1) Lobular carcinoma of right breast Code(s): C50.911 - MALIGNANT NEOPLASM OF UNSP SITE OF RIGHT FEMALE BREAST Assessment/Plan continue IV antibiotics spirometry continue current pain medications consider nitropaste to right breast will discuss with Dr Maldonado and Dr Woodward
[2019-02-26] MEDS: DEXTROSE 5%-0.45% SALINE 1,000 ML IV SCH (12:35)
[2019-02-26] MEDS: ZOLPIDEM TARTRATE 5 MG TABLET PO PRN (21:59)
[2019-02-27] MEDS ORDERED: ceFAZolin SODIUM 1 GM VIAL ONE ×2 (02:37→08:12)
[2019-02-27] MEDS ORDERED: DEXTROSE 5%-WATER - 50 ML IVPB ONE ×2 (02:37→08:13)
[2019-02-27] MEDS: CEFAZOLIN 1 GM in DEXTROSE 5%-WATER - 50 ML IVPB SCH ×2 (03:00→08:50)
[2019-02-27] MEDS: oxyCODONE HCL 5 MG TABLET PO PRN ×2 (03:00→07:27)
[2019-02-27] MEDS: ACETAMINOPHEN 1000 MG/100 ML VIAL (NON FORMULARY) IVPB SCH ×2 (06:38)
[2019-02-27 07:10] VITALS: BP 108/71; PULSE 72; TEMP 98.8
--- NOTE | 2019-02-27 09:16 | PN ---
Progress Note, Physician Chief Complaint: Right breast cancer lower outer quadrant - Current Medication List Current Medications: Active Medications Acetaminophen (Ofirmev Injection -) 1,000 mg IVPB Q6H [facility] Last Admin: 02/27/19 06:38 Dose: Not Given Acetaminophen (Tylenol -) 650 mg PO Q4H PRN PRN Reason: FEVER Diazepam (Valium -) 5 mg PO BID [facility] Last Admin: 02/26/19 21:38 Dose: 5 mg Hydromorphone HCl (Dilaudid Vial -) 0.5 mg IVPB Q3H PRN PRN Reason: PAIN LEVEL 7 - 10 Dextrose/Sodium Chloride (D5-1/2ns -) 1,000 mls @ 100 mls/hr IV ASDIR [facility] Last Admin: 02/26/19 12:35 Dose: 100 mls/hr Cefazolin Sodium 1 gm/ (Dextrose) 50 mls @ 100 mls/hr IVPB Q6H-IV [facility] Stop: 03/04/19 14:59 Last Admin: 02/27/19 03:00 Dose: 100 mls/hr Ondansetron HCl (Zofran Injection) 4 mg IVPUSH Q6H PRN PRN Reason: NAUSEA AND/OR VOMITING Oxycodone HCl (Oxycontin -) 10 mg PO BID [facility] Stop: 02/28/19 10:10 Last Admin: 02/26/19 21:37 Dose: 10 mg Oxycodone HCl (Roxicodone -) 5 mg PO Q3H PRN PRN Reason: PAIN LEVEL 1 - 3 Oxycodone HCl (Roxicodone -) 10 mg PO Q3H PRN PRN Reason: PAIN LEVEL 4 - 6 Last Admin: 02/27/19 07:27 Dose: 10 mg Rosuvastatin Calcium (Crestor -) 5 mg PO Q2D [facility] Zolpidem Tartrate (Ambien -) 5 mg PO HS PRN PRN Reason: Insomnia Last Admin: 02/26/19 21:59 Dose: 5 mg - Objective Vital Signs: Vital Signs Temperature 98.8 F 02/27/19 06:00 Pulse Rate 72 02/27/19 06:00 Respiratory Rate 18 02/27/19 06:00 Blood Pressure 108/71 02/27/19 06:00 O2 Sat by Pulse Oximetry (%) 98 02/27/19 06:00 Constitutional: Yes: Well Nourished, No Distress, Calm Eyes: Yes: WNL HENT: Yes: Atraumatic, Normocephalic Neck: Yes: WNL Cardiovascular: Yes: Regular Rate and Rhythm Respiratory: Yes: Regular, CTA Bilaterally Gastrointestinal: Yes: Normal Bowel Sounds, Soft ...Rectal Exam: Yes: Deferred Genitourinary: Yes: WNL Breast(s): Yes: Other (Bilateral mastectomy wounds clean, dry, and intact. Wound clean dry, and intact. Skin flaps viable with some bruising on right upper outer quadrant and left inferior aspect.) Musculoskeletal: Yes: WNL Extremities: Yes: WNL Integumentary: Yes: WNL Wound/Incision: Yes: Clean/Dry, Well Approximated Neurological: Yes: Alert, Oriented ...Motor Strength: WNL Psychiatric: Yes: WNL Labs: CBC, BMP 02/26/19 07:14 Problem List - Problems (1) Invasive lobular carcinoma of breast in female Assessment/Plan: The patient is POD#2 s/p bilateral nipple sparing mastectomies with direct to implant reconstructions. Her wounds are clean dry, and intact with viabel skin flaps but some moderate bruising on the right breast UOQ and left inferior fold. May develop some epidermolysis. Drains functioning well. Has good pain control. She is stable for discharge today. Home on percocet for pain and duricef antibiotics. Follow up in the office with Drs. Woodward and Erica in 1 week. Record drain outputs daily. NO heavy lifting or exercise. Code(s): C50.919 - MALIGNANT NEOPLASM OF UNSP SITE OF UNSPECIFIED FEMALE BREAST
--- NOTE | 2019-02-27 09:22 | DS ---
Physical Examination Vital Signs: Vital Signs Temperature 98.8 F 02/27/19 06:00 Pulse Rate 72 02/27/19 06:00 Respiratory Rate 18 02/27/19 06:00 Blood Pressure 108/71 02/27/19 06:00 O2 Sat by Pulse Oximetry (%) 98 02/27/19 06:00 Constitutional: Yes: Well Nourished, No Distress, Calm Eyes: Yes: WNL HENT: Yes: Atraumatic, Normocephalic Neck: Yes: WNL Cardiovascular: Yes: Regular Rate and Rhythm Respiratory: Yes: Regular, CTA Bilaterally Gastrointestinal: Yes: Normal Bowel Sounds, Soft ...Rectal Exam: Yes: Deferred Renal/: Yes: WNL Breast(s): Yes: Other (Mastectomy wounds clean, dry, and intact. Drians functioning well. Skin flaps with moderate bruising but viable.) Musculoskeletal: Yes: WNL Extremities: Yes: WNL Integumentary: Yes: WNL Wound/Incision: Yes: Clean/Dry, Well Approximated Neurological: Yes: Alert, Oriented ...Motor Strength: WNL Psychiatric: Yes: WNL Labs: CBC, BMP 02/26/19 07:14 Discharge Summary Reason For Visit: RIGHT BREAST CA Right breast invasive lobular cancer lower outer quadrant. Procedures: Principal: Bilateral nipple sparing mastectomies with direct to implant reconstruction with alloderm Hospital Course: The patient was admitted postoperatively and had good pain control and was ambulating well enough for discharge by POD#2. Her wounds were clean, dry, and intact and drains functioning well. Skin flaps were viable with some moderated bruising in the right breast UOQ and left breast inferior fold. She was taught KIRSTEN drain teaching and will be sent home on percocet for pain and cefadroxil antibiotics. No bath shower until drains removed. No heavy lifting or exercise. Follow up with Drs. Maldonado and Leslie in 1 week. Condition: Good - Instructions Diet, Activity, Other Instructions: Post Operative Instructions - [facility] We hope your recovery will be uneventful. For those of you who have been given general anesthesia, there is a possibility you might have some lightheadedness and possibly nausea. It is important that each patient, especially those who have had general anesthesia, follow these instructions, please: 1. Do NOT operate a motor vehicle for 24 hours. 2. Do NOT drink any alcoholic beverages for 24 hours. 3. Do NOT take any sedatives, narcotics, or tranquilizers for 24 hours unless specifically ordered by your surgeon. 4. Do NOT undertake any strenuous exercise or outside activity for 24 hours unless specifically permitted by your surgeon. 5. Eat light foods that are easy to digest. If you have any problems with nausea and vomiting, lie down and rest. If it continues, call your surgeon. 6. Call your surgeon AT ONCE if you have problems with: a. Bleeding b. Urinating c. Excessive pain or drainage d. Numbness If any problems occur, call your physician first. If you cannot reach him/her, call the Ambulatory Surgery Unit at [phone], or the Emergency Room at [phone]. Follow up with Drs. Woodward / Sharad in 7 days. Medication: Vicodin E-S OR Percocet 1-2 tablets every 4-6 hrs as needed for 5-7 days. Wound Care: Keep wound dry and clean for 48 hours. You may remove the dressing after 48 hours and may shower. Keep steri-strips in place until follow-up appointment No heavy lifting or strenuous activities. BREAST SURGERY INSTRUCTIONS Bigg Woodward M.D., FACS Toni Woodward M.D., FACS Elle Orourke M.D., FACS 1. Please call the office at to make a follow up appointment with your surgeon. This number can be also used for any urgent issues you may have. 2. Call us immediately if any of the following occur: *Bleeding from the incision or drain site (a small amount is normal) *Fever or chills *Redness and worsening tenderness around the surgical site *Drainage of pus or fluid from the incision or drain site 3. You may change the surgical dressing two (2) days after your surgery, and may shower then. If you have drains, you may shower after they have been removed, until then take a sponge bath. 4. It is normal for there to be some bruising and tenderness around the surgical site, and the breast may also be firm in this area. 5. Your surgeon used 3M DuraPrep Surgical Solution, a bacteria-killing skin preparation. It is recommended that this film remain on the skin after the procedure. The film will gradually wear away. If, however, early removal is desired: 1. Apply 8610 or 8611 3M Remover solution to the prepped area, keeping away from the wound edge or puncture site. Wipe off with a disposable towel. OR 2. Soak gauze with 70% Isopropyl alcohol and place on the prepped area for at least 40 seconds. Lightly scrub to remove the solution. 6. Please wear a comfortable bra (sports or surgical bra) all day and all night until your first follow-up visit with your surgeon. 7. The pain medicine you have been prescribed may make you constipated; make sure you drink plenty of water. You may use an over the counter laxative if needed. 8. You may resume your normal diet after surgery, although you may want to avoid rich foods for the first twenty-four (24) hours after surgery. Alcoholic drinks should be avoided while taking the prescribed pain medicine. 9. You may resume normal activities as long as there is no discomfort, but do not do upper body exercises until after your follow-up appointment. Do not lift anything heavier than a large phone book. You may resume driving once you have stopped taking the prescribed pain medicine and feel comfortable doing arm movements. WEAR BRA, NO SHOWER, EMPTY AND RECORD KIRSTEN OUTPUT TWICE DAILY Referrals: Toni Woodward MD [Staff Physician] - Kenn Maldonado MD [Staff Physician] - Disposition: HOME - Home Medications Comprehensive Discharge Medication List: Ambulatory Orders Ascorbic Acid [Vitamin C] 500 mg PO DAILY 12/29/18 Biotin 10,000 mcg PO DAILY 12/29/18 Cholecalciferol (Vitamin D3) [Vitamin D3] 2,000 unit PO DAILY 12/29/18 Cyanocobalamin Vit B-12 Inj. [Vitamin B12 Injection -] 1,000 mcg IJ MONTHLY 11/17 Multivitamins [Multivit ([facility] Formulary)] 1 tab PO DAILY 12/29/18 Rosuvastatin Calcium [Crestor] 5 mg PO ASDIR 12/29/18 Oxycodone HCl/Acetaminophen [Percocet 5-325 mg Tablet] 1 - 2 tab PO Q6H #20 tablet MDD 5 01/14/19 Cefadroxil 500 mg PO BID #20 capsule 02/26/19 Diazepam [Valium] 5 mg PO Q8H PRN #20 tablet MDD 3 02/26/19 Oxycodone HCl/Acetaminophen [Percocet 5-325 mg Tablet] 1 - 2 tab PO Q6H PRN #30 tab MDD 6 02/26/19
[2019-02-27] MEDS ORDERED: ROSUVASTATIN CA 5 MG TABLET (FP) PO SCH (10:00)
--- NOTE | 2019-03-01 08:08 | SURG ---
Surgery Reading Intervention Teacher Note Reading Intervention Teacher: Constanza Yang PA-C Date of Service: 02/25/19 Diagnosis: breast cancer Procedure: bilateral nipple sparing mastectomy with reconstruction. Bilateral placement of alloderm and implants. I was present for the entirety of the operative procedure. For further detail, please refer to operative report. Visit type - Case Type Case Type: Scheduled - Emergency Emergency Visit: No - New patient This patient is new to me today: Yes Date on this admission: 02/25/19 - Critical Care Critical Care patient: No
--- NOTE | 2019-03-02 14:23 | PATH ---
Surgical Pathology Report Patient Name: ALONZO BLACKWOOD Med. Rec. #: [id number] /Age/Gender: 1960 (Age: 58) / F Account: [id number] Location: [facility] Taken: 02/25/2019 Received: 02/25/2019 Reported: 03/02/2019 Physicians: Toni Woodward M.D. Specimen(s) Received A: RIGHT RETROAREOLAR BIOPSY (FS) B: LEFT RETROAREOLAR BIOPSY (FS) C: RIGHT MASTECTOMY D: LEFT MASTECTOMY Clinical History Right breast cancer Intraoperative Consult Diagnosis A. Right retroareolar biopsy, frozen section: Atypical cells present in a background of inflammatory infiltrate. Defer to permanent sections. B. Left retroareolar biopsy, frozen section: Atypical. Focal atypical epithelial proliferation, favor ALH. Mee Rodríguez M.D., 02/25/2019 Final Diagnosis A. RETROAREOLAR, RIGHT, BIOPSY (FS): BENIGN BREAST PARENCHYMA WITH DIFFUSE CHRONIC INFLAMMATORY INFILTRATE INCLUDING HISTIOCYTIC PROLIFERATION AND REACTIVE CHANGES. B. RETROAREOLAR, LEFT, BIOPSY (FS): BENIGN BREAST PARENCHYMA WITH MILD PERIDUCTAL CHRONIC INFLAMMATORY INFILTRATE INCLUDING HISTIOCYTIC PROLIFERATION AND FOCAL MILD USUAL DUCTAL HYPERPLASIA. C. BREAST, RIGHT, MASTECTOMY: LOBULAR CARCINOMA IN SITU (LCIS), CLASSICAL TYPE. INTRADUCTAL PAPILLOMAS, FOCALLY SCLEROSED AND PARTIALLY INVOLVED BY LCIS. REMAINDER OF BREAST PARENCHYMA SHOWS PROLIFERATIVE FIBROCYSTIC CHANGES INCLUDING STROMAL FIBROSIS, MICROCYSTS, APOCRINE METAPLASIA, COLUMNAR CELL CHANGES, USUAL DUCTAL HYPERPLASIA, AND RARE MICROCALCIFICATIONS CHANGES OF PRIOR PROCEDURE IN UPPER OUTER QUADRANT (UOQ), INCLUDING CHRONIC INFLAMMATION, HISTIOCYTIC PROLIFERATION, SUTURE GRANULOMA, AND GIANT CELL REACTION PRESENT. D. BREAST, LEFT, MASTECTOMY INTRADUCTAL PAPILLOMAS. PROLIFERATIVE FIBROCYSTIC AND FIBROADENOMATOID CHANGES INCLUDING STROMAL FIBROSIS, MICROCYSTS, CYSTIC APOCRINE METAPLASIA, COLUMNAR CELL CHANGES, AND USUAL DUCTAL HYPERPLASIA. Electronically Signed Bertha Davey M.D. Gross Description A. Received fresh for immediate intraoperative consultation labeled "right retroareolar biopsy" is a pink-cueto soft tissue measuring 1.2 x 0.7 x 0.3 cm. Entire specimen is submitted for frozen section analysis in one cassette, FSA. B. Received fresh for immediate intraoperative consultation labeled "left retroareolar biopsy" is a pink-cueto soft tissue measuring 1.5 x 0.7 x 0.3 cm. Entire specimen is submitted for frozen section analysis in one cassette, FSB. C. Received in formalin, labeled "right mastectomy," is a 382 gram, 19.0 x 12.0 x 3.8 cm. right mastectomy specimen with a short suture marking the superior aspect and a long suture marking the lateral aspect of the specimen, per the surgeon. There is no skin or nipple present. The deep margin is inked black and the anterior soft tissue margin is inked blue. The specimen is serially sectioned from lateral to medial. Sectioning reveals a 4.5 x 3.0 x 3.0 cm previous biopsy cavity in the upper outer quadrant (UOQ). The cavity is surrounded by firm fibrous tissue and abuts the anterior soft tissue margin. The remaining breast parenchyma displays foci of white fibrous tissue. Overseamer sections are submitted in 16 cassettes as follows: 1-6-UOQ previous biopsy site; 7-8-lower outer quadrant; 9-12-upper inner quadrant; 13-14-lower inner quadrant; 15-anterior soft tissue margin; 16-deep margin. D. Received in formalin, labeled "left mastectomy," is a 395 gram, 16.0 x 15.5 x 3.0 cm. left mastectomy specimen with a short suture marking the superior aspect and a long suture marking the lateral aspect of the specimen, per the surgeon. There is no skin or nipple present. The deep margin is inked black and the anterior soft tissue margin is inked blue. The specimen is serially sectioned from medial to lateral. Sectioning reveals abundant dense, white, focally firm fibrous tissue with dilated ducts. Overseamer sections are submitted in 15 cassettes as follows: 1-3-upper outer quadrant; 4-6-lower outer quadrant; 7-10-upper inner quadrant; 11-13-lower inner quadrant; 14-anterior soft tissue margin; 15-deep margin. Time to formalin fixation: 52 minutes Total formalin fixation time: Approximately 32 hours. 02/25/201902/25/2019
== END 2019-02-27 10:45 | disposition home or self-care (01) | DRG 583 ==
LOC: FM/S 06:06
PROVIDERS: ADMIT Surgery Surgical Oncology; ATTEND Surgery Surgical Oncology
PROC: 4A1GXSH Monitoring of Skin and Breast Vascular Perfusion using Indocyanine Green Dye, External Approach (ICD-10-PCS; 2019-02-25)
PROC: 0HTV0ZZ Resection of Bilateral Breast, Open Approach (ICD-10-PCS; principal; 2019-02-25 08:13)
PROC: 0HR Skin and Breast, Replacement (ICD-10-PCS; 2019-02-25 08:13)
DX: C50.511 Malignant neoplasm of lower-outer quadrant of right female breast (principal); Z17.0 Estrogen receptor positive status [ER+]
CPT/HCPCS: 36415; 85027; 88307-TC; 88331-TC; 94760; J0131

== ENCOUNTER 2019-09-10 06:11 | Day surgery (SDC) | payer OTHER ==
[2019-09-09 11:46] VITALS: BMI 22.2
[2019-09-10] MEDS ORDERED: LIDOCAINE HCL 1%, 10 MG/ML (20ML VIAL) ONE (07:04)
[2019-09-10] MEDS ORDERED: DEXAMETHASONE SOD PHOSPHATE 4 MG/1 ML VIAL ONE (07:04)
[2019-09-10] MEDS ORDERED: BENZOIN TINCTURE SWABSTICK TP ONE (07:04)
[2019-09-10] MEDS ORDERED: BUPIVACAINE HCL/PF 0.5% (5 MG/ML) 30 ML VIAL IJ ONE (07:04)
[2019-09-10] MEDS ORDERED: ceFAZolin 2 GRAM PREMIX BAG IVPB ONE ×2 (07:30→08:30)
[2019-09-10] MEDS ORDERED: MIDAZOLAM HCL 2 MG/2 ML SINGLE DOSE VIAL ONE ×2 (07:32)
[2019-09-10] MEDS ORDERED: PROPOFOL 20 ML ONE ×6 (07:32→08:58)
[2019-09-10] MEDS ORDERED: BUPIVACAINE HCL/PF 0.5% (5MG/ML) 10 ML VIAL NR ONE (07:50)
[2019-09-10] MEDS ORDERED: LIDOCAINE HCL 1%, 10 MG/ML (50 mL VIAL) IJ ONE (07:50)
[2019-09-10] MEDS ORDERED: BUPIVACAINE HCL/PF 0.5% (5MG/ML) 10 ML VIAL IJ ONE ×2 (08:15→08:53)
[2019-09-10] MEDS ORDERED: DEXAMETHASONE SOD PHOSPHATE 4 MG/1 ML VIAL IVPUSH ONE ×2 (08:15→08:53)
[2019-09-10] MEDS ORDERED: ceFAZolin SODIUM 1 GM VIAL ONE (08:28)
[2019-09-10] MEDS ORDERED: oxyCODONE HCL 5 MG TABLET PO PRN ×2 (08:29)
[2019-09-10] MEDS ORDERED: ONDANSETRON 4 MG/2 ML VIAL IVPUSH PRN (08:29)
[2019-09-10] MEDS ORDERED: LACTATED RINGERS SOLUTION 1,000 ML IV SCH (08:30)
[2019-09-10 15:42] VITALS: PULSE 58; TEMP 98
[2019-09-10 15:57] VITALS: BP 110/70
--- NOTE | 2019-09-10 23:55 | OP ---
Operative Note - Note: Operative Date: 09/10/19 Pre-Operative Diagnosis: Hammer toes 2,3,4,5 all left foot. hallux left foot with bone spur. Operation: arthroplasty PIPJ 2,3,4,5 left. Tenotomy 2nd mpj left. exostectomy hallux medial distal dorsal condyle exostectomy. Findings: hypertrophic bone and soft tissue Post-Operative Diagnosis: Same as Pre-op Surgeon: Madison Huynh Shrimp Cleaner: William Moore Anesthesiologist/TRAFFIC SERGEANT: Nikki Miranda Anesthesia: Local, MAC Specimens Removed: bone and soft tissue Estimated Blood Loss (mls): 5 Operative Report Dictated: No
--- NOTE | 2019-09-14 17:45 | PATH ---
Surgical Pathology Report Patient Name: ALONZO BLACKWOOD [facility]. Rec. #: [id number] /Age/Gender: 1960 (Age: 59) / F Account: [id number] Location: [facility] SURGICAL Taken: 09/10/2019 Received: 09/10/2019 Reported: 09/14/2019 Physicians: Madison Huynh DPM Specimen(s) Received A: SKIN 2ND TOE LEFT FOOT B: SKIN 3RD TOE LEFT FOOT C: SKIN 4TH TOE LEFT FOOT D: SKIN 5TH TOE LEFT FOOT E: BONE 2ND TOE LEFT FOOT F: BONE 3RD TOE LEFT FOOT G: BONE 4TH TOE LEFT FOOT H: BONE 5TH TOE LEFT FOOT Clinical History Left foot hammer toes Final Diagnosis A. SKIN, FOOT, LEFT, SECOND TOE, EXCISION: SKIN WITHOUT SIGNIFICANT PATHOLOGIC FINDINGS. B. SKIN, FOOT, LEFT, THIRD TOE, EXCISION: SKIN WITHOUT SIGNIFICANT PATHOLOGIC FINDINGS. C. SKIN, FOOT, LEFT, FOURTH TOE, EXCISION: SKIN WITHOUT SIGNIFICANT PATHOLOGIC FINDINGS. D. SKIN, FOOT, LEFT, FIFTH TOE, EXCISION: SKIN WITHOUT SIGNIFICANT PATHOLOGIC FINDINGS. E. BONE, FOOT, LEFT, SECOND TOE, REPAIR OF HAMMER TOES: BONE WITH DEGENERATIVE CHANGES AND FATTY MARROW. F. BONE, FOOT, LEFT, THIRD TOE, REPAIR OF HAMMER TOES: BONE WITH DEGENERATIVE CHANGES AND FATTY MARROW. G. BONE, FOOT, LEFT, FOURTH TOE, REPAIR OF HAMMER TOES: BONE WITH DEGENERATIVE CHANGES AND FATTY MARROW. H. BONE, FOOT, LEFT, FIFTH TOE, REPAIR OF HAMMER TOES: BONE WITH DEGENERATIVE CHANGES AND FATTY MARROW. Electronically Signed Bertha Davey M.D. Gross Description A. Received in formalin labeled "left foot skin from second toe," is a 1.7 x 0.8 cm cueto, elliptical, unoriented portion of skin excised to depth of 0.2 cm. The epidermal surface shows a focal defect. A cash applications representative section is submitted in one cassette. B. Received in formalin labeled "skin third toe left foot," is a 1.5 x 0.5 cm cueto, elliptical, unoriented portion of skin excise to depth of 0.1 cm. The epidermal surface is unremarkable. A cash applications representative section is submitted in one cassette. C. Received in formalin labeled "skin fourth toe left foot," is a 1.7 x 0.6 cm cueto, elliptical, unoriented portion of skin excise to depth of 0.1 cm. The epidermal surface is unremarkable. A cash applications representative section is submitted in one cassette. D. Received in formalin labeled "skin fifth toe left foot," is a 1.8 x 0.7 cm cueto, elliptical, unoriented portion of skin excised to a depth of 0.2 cm. The epidermal surface is unremarkable. A cash applications representative section is submitted in one cassette. E. Received in formalin labeled "bone second toe left foot," is a 1.0 x 0.6 x 0.5 cm cueto-yellow portion of bone. A cash applications representative section is submitted in one cassette, following decalcification. F. Received in formalin labeled "bone third toe left foot," is a 1.0 x 0.5 x 0.5 cm cueto-yellow portion of bone. A cash applications representative section is submitted in one cassette, following decalcification. G. Received in formalin labeled "bone fourth toe left foot," is a 0.9 x 0.4 x 0.4 cm cueto-yellow portion of bone. A cash applications representative section is submitted in one cassette, following decalcification. H. Received in formalin labeled "bone fifth toe left foot," is a 1.0 x 0.6 x 0.4 cm cueto-yellow portion of bone. A cash applications representative section is submitted in one cassette, following decalcification. 09/13/2019 [facility]09/13/2019
--- NOTE | 2019-09-24 18:57 | OP ---
DATE OF OPERATION: 09/10/2019 PREOPERATIVE DIAGNOSIS: Hammertoes 2, 3, 4, 5, left foot, with bone spur of left big toe. PROCEDURE: Arthroplasty of the proximal interphalangeal joint, toes 2, 3, 4, and of left foot; with a tenotomy of the 2nd metatarsophalangeal joint, left foot; exostectomy of the hallux medial distal dorsal condyle, also of the left foot. POSTOPERATIVE DIAGNOSIS: Hammertoes 2, 3, 4, 5, left foot, with bone spur of left big toe. SURGEON: Madison Huynh DPM SOFTWARE ENGINEER WEB SERVICES: William Moore DPM PROCEDURE: After noting all preoperative vital signs within normal limits and after surgical consent was signed and witnessed, the patient was brought to the OR, placed on the table in a supine position. An IV line had been started prior to the patient coming to the OR. Once the patient was on the table, the patient was given sedation. Once the patient was sedated, a local infiltrate was placed around the metatarsophalangeal joints of toes 1, 2, 3, 4, and 5, anesthetizing the whole forefoot. Once this was done, the foot was then prepped and draped in the usual sterile fashion. A well-padded ankle tourniquet had been applied prior to the foot being prepped and draped. Once the foot was prepped, it was elevated and exsanguinated and the tourniquet was elevated to 250 mmHg on the left ankle. Once this was done, attention was directed to toes 2, 3, 4, and 5, where 2 converging semielliptical incisions were created over the proximal interphalangeal joint of toes 2, 3, 4, and 5, all of the left foot. This incision was deepened using sharp and blunt dissection to the level of the extensor tendon on toes 2, 3, 4, and 5 of the left foot. Once this was done, the extensor tendon was transected on all 4 toes going from medial to lateral, exposing the head of the proximal phalanx. Once this was done, the soft tissue was liberated on the lateral, medial, and dorsal aspect of the proximal phalanx of toes 2, 3, 4, and 5 on the left foot. Once all the bone had been exposed of the distal one-third of the proximal phalanx of toes 2, 3, 4, and 5 of the left foot, utilizing a sagittal saw going from dorsal to plantar, the heads of the phalanges were removed and sent down to Pathology. The area was then inspected for any remaining bone spicules. There were none noted. A flush was then done with copious amounts of sterile saline that had antibiotic irrigation added to it. Once this was done, the extensor tendons were reapproximated using 3-0 Vicryl in a simple interrupted suture fashion on toes 2, 3, 4, and 5 of the left foot. Skin was then closed utilizing 4-0 nylon in a simple interrupted suture fashion. The 2nd toe at the metatarsophalangeal joint, an extensor tenotomy was done percutaneously, releasing the extensor tendon on the 2nd toe, allowing for plantar flexion. Once this was done, a 3-0 [address] was [address] into [address] to close the skin of the 2nd metatarsophalangeal joint. Once this was done, attention was directed to the big toe of the left foot, where 2 converging semi-elliptical incisions were created over the dorsal medial condyle of the proximal phalanx. This incision was deepened using sharp and blunt dissection to the level of the condyle dorsally of the hallux. All unavoidable vessels were ligated in the usual fashion. All other neurovascular structures were retracted out of the surgical site. At this time, it was noted that there was an exostosis of the dorsal medial distal condyle of the proximal phalanx of the left big toe. Utilizing a bone rongeur, this condyle was removed. Utilizing a reciprocating rasp, the area was smoothed. A flush was then done with copious amounts of sterile saline. The area was palpated. There was no remaining exostosis noted. Another flush was done. Then the area was closed using 3-0 nylon in simple interrupted suture fashion. Betadine-soaked Adaptic, dry sterile gauze, and a Hope dressing were then applied. The tourniquet was deflated and capillary filling time was instantaneous to all 5 toes of the left foot. Patient tolerated the anesthesia and the procedure well. Patient returned to the recovery room, vital signs stable and vascular status intact. TAMMY Tucker/[id number]
== END 2019-09-10 11:30 | disposition home or self-care (01) ==
LOC: JASU-SURG 06:11
PROVIDERS: ATTEND Podiatrist Foot Surgery
PROC: 0SRQ0JZ Replacement of Left Toe Phalangeal Joint with Synthetic Substitute, Open Approach (ICD-10-PCS; principal; 2019-09-10 07:30)
DX: M20.42 Other hammer toe(s) (acquired), left foot (principal); D16.32 Benign neoplasm of short bones of left lower limb
CPT/HCPCS: 73630-TC-LT; 88304-TC; 88305-TC; 88311-TC; 94760